=== PATIENT | female | born 1965 | race Caucasian/White ===

== ENCOUNTER 2018-10-31 15:04 | Emergency (ER) | payer SELFPAY ==
[2018-10-31] MEDS ORDERED: AMOXICILLIN TRIHYD 250 MG CAPSULE PO ONE (15:25)
[2018-10-31] MEDS ORDERED: AMOXICILLIN TR/POT CLAVULANATE 500-125 MG TAB PO ONE (15:25)
[2018-10-31] MEDS ORDERED: DIPH/PERTUSS(ACELL)/TETANUS VAC/PF 0.5 ML SYR (>=10YO) IM ONE (15:25)
--- NOTE | 2018-10-31 15:31 | ER Document Report ---
HPI - HPI Time Seen by Provider: 10/31/18 15:16 Pain Level: 5 Context: Patient is a 53-year-old female with a history of type 2 diabetes, hypertension, chronic back pain who presents to the emergency department with a chief complaint of dog bite. Patient states she was in her yard when another dog came into her yard and started a fight with her dog. Patient reports she attempted to break up the fight when the stray dog bit her left forearm, right forearm and right middle finger. Patient states she is concerned she may have a fracture to the right distal middle digit as she has bruising, swelling and inability to move at the joint distally. Patient states she is unsure of her tetanus shot is up-to-date but thinks it is greater than 5 years. Patient reports the dog did not appear ill but more aggressive towards her dog. Patient states it was not foaming at the mouth or having abnormal behavior. Patient states animal control has not been contacted. Patient reports incidence occurred around 2 PM this afternoon. - CONSTITUTIONAL Constitutional: DENIES: Fever, Chills - MUSCULOSKELETAL Musculoskeletal: REPORTS: Extremity pain Past Medical History - General Information source: Patient - Social History Smoking Status: Current Every Day Smoker Frequency of alcohol use: Rare Drug Abuse: None Lives with: Family Family History: Reviewed & Not Pertinent Patient has suicidal ideation: No Patient has homicidal ideation: No - Past Medical History Cardiac Medical History: Reports: Hx Hypertension Pulmonary Medical History: Reports: None EENT Medical History: Reports: None Neurological Medical History: Reports: None Endocrine Medical History: Reports: Hx Diabetes Mellitus Type 2 Renal/ Medical History: Reports: None. Denies: Hx Peritoneal Dialysis Malignancy Medical History: Reports: None GI Medical History: Reports: None Musculoskeletal Medical History: Reports None Skin Medical History: Reports None Psychiatric Medical History: Reports: None Traumatic Medical History: Reports: None Infectious Medical History: Reports: None Past Surgical History: Reports: Hx Hysterectomy, Hx Tonsillectomy - Immunizations Hx Diphtheria, Pertussis, Tetanus Vaccination: Yes Vertical Provider Document - CONSTITUTIONAL Agree With Documented VS: Yes Exam Limitations: No Limitations General Appearance: No Apparent Distress - INFECTION CONTROL TRAVEL OUTSIDE OF THE [place] IN LAST 30 DAYS: No - HEENT HEENT: Atraumatic, Normal ENT Exam, Normocephalic, PERRLA - NECK Neck: Normal Inspection - RESPIRATORY Respiratory: Breath Sounds Normal, No Respiratory Distress - CARDIOVASCULAR Cardiovascular: Regular Rate, Regular Rhythm - GI/ABDOMEN Gastrointestinal: Abdomen Soft, Abdomen Non-Tender - MUSCULOSKELETAL/EXTREMETIES Notes: There is 1 puncture wound noted to the left medial forearm. There is one puncture wound to the right medial forearm. There is 2 puncture wounds noted to the right middle digit on the hand. 1 of the puncture wounds is located on the ventral aspect of the right digit near the DIP joint and the other is on the dorsal side near the DIP joint. Patient has significant swelling of the PIP and DIP joint with ecchymosis. Patient has good cap refill. Slight deformity to the distal aspect of the third phalanx. - NEURO Level of Consciousness: Awake, Alert, Appropriate - DERM Integumentary: Warm, Dry Course - Re-evaluation Re-evalutation: 10/31/18 15:30 We will order an x-ray to rule out fracture dislocation of the right hand. 10/31/18 16:40 Did speak with my attending supervising physician Dr. Jaycee Flores who recommends that the patient receive rabies vaccine although the chance is low. She did state to offer the patient the rabies vaccination or to see if animal control is able to fine the animal within the next day or so. The nurse did report and pe rsonally speak with animal control. I did speak with the patient in regards to the rabies vaccine and she states that at this time she would like to wait and see if the animal control staff are able to find the dog within the next 48 hours. She states she will return if they are unable to find the dog to receive the rabies vaccination. I did inform the patient it is vital to return if they cannot find the dog has rabies can lead to . Patient verbalized understanding. I also discussed the x-ray results with Dr. Flores as the patient's finger during my physical examination had a slight deformity to the distal aspects of the third phalanx. The radiology report did not read a displacement or dislocation. Patient may have a minimally displaced fracture but is shown in some images. Will splint the middle finger and have the patient follow-up with orthopedics as she may require pinning and surgery. I did discuss this with the patient states she will call [facility] for surgery tomorrow. - Vital Signs Vital signs: Temp Pulse Resp BP Pulse Ox 99.3 F 94 18 136/79 H 95 10/31/18 15:09 10/31/18 15:09 10/31/18 15:09 10/31/18 15:09 10/31/18 15:09 - Diagnostic Test Radiology reviewed: Reports reviewed Radiology results interpreted by me: 10/31/18 16:07 Hand X-Ray 10/31/18 15:30 IMPRESSION: Oblique fracture through the distal aspect of the middle phalanx of the 3rd digit. The fracture extends through the articular surface. Discharge - Discharge Clinical Impression: Dog bite Qualifiers: Encounter type: initial encounter Qualified Code(s): W54.0XXA - Bitten by dog, initial encounter Phalanx, distal fracture of finger Qualifiers: Encounter type: initial encounter Finger: middle finger Fracture type: closed Fracture alignment: nondisplaced Laterality: right Qualified Code(s): S62.662A - Nondisplaced fracture of distal phalanx of right middle finger, initial encounter for closed fracture Condition: Stable Disposition: HOME, SELF-CARE Additional Instructions: Today you were seen in the emergency department for a dog bite. We have cleansed the wounds which do not require any repair at this time. Please keep these clean dry and monitor for signs of infection. He will be placed on Augmentin which is a member of the penicillin family this is the common antibiotic treated for dog bites. If you develop any redness, drainage or oozing from the site, fever or any signs of infection please return the emergency department immediately. Animal control has been contacted. If they are unable to find the dog within the next 48 hours you do need to return to have a rabies vaccine. This is a series of shots that we have talked about. It is imperative that if they do not find the dog they need to return for this vaccine as rabies can be deadly. It is highly unlikely that the dog has rabies but unless it is quarantine we do not know for sure. It was also noted that you have a fracture at the end of your right middle finger. We have placed you in a splint which needs to stay dry, clean and intact until you follow-up with orthopedics. It is absolutely necessary follow- up with orthopedics as you may require a pin in surgery to the finger. Please follow-up with Dr. Ponce as he is a hand specialist. Please call his office and report that you are seen in the emergency department and referred to him for follow-up. Fractured Finger There is a fracture in your finger. The bone is straight and in good posi tion to heal. The doctor has assessed the seriousness of the fracture and has explained your treatment plan. Usually the finger will be splinted until fracture healing is complete. This is usually about three or four weeks. At that time, the injured finger may be taped to the next finger to provide a moving splint for longer protection. The first few days after the injury, the finger should be kept elevated and cold (with ice packs). This decreases the swelling and pain. You should contact the doctor or return at once if pain or swelling become severe, or if the finger becomes numb. Some degree of bruising is normal with a finger fracture. Animal Bites Animal bites are often heavily contaminated with bacteria. In spite of thorough cleansing and proper treatment, these wounds frequently become infected. Bite wounds of the hands are especially prone to complications. Bites are dressed, if possible. Large wounds may require suturing after internal cleansing. Because of infection risk, some large wounds must remain unstitched. Your doctor is trained to advise you on the best treatment for your bite. Call the doctor at once if the wound becomes red, swollen, warm, increasingly painful, or if it begins to drain. Danger signs also include red streaks up the involved extremity, swollen glands in the groin or under the arm, or fever and chills. The risk of rabies from domestic animals is very low. Bats, sick animals, and wild animals may expose you to rabies. The physician, or the health department, will inform you if you will need to receive the rabies vaccine. Augmentin Augmentin is a mixture of amoxicillin and clavulanate. Amoxicillin is a member of the penicillin family. It covers the germs likely to cause ear, bronchial, and urinary infections better than plain penicillin. The addition of clavulanate allows it to cover staph infections of the skin, as well as resistant cases of ear and sinus infections. Your physician has chosen Augmentin for you because of the special nature of your situation. Augmentin is best taken with meals. Nausea after taking the medication is rare, but can occur. Diarrhea can occur, particularly in small children. Vaginal yeast infections, and oral thrush in infants are also common. Contact your physician if these problems occur. Allergy to penicillins is common. If you have had an allergic reaction to any drug of the penicillin family, you should never take any other penicillin. Notify your doctor at once if you develop hives, shortness of breath, swelling, or faintness. Prescriptions: Amox Tr/Potassium Clavulanate [Augmentin 875-125 Tablet] 1 tab PO BID 10 Days #20 tablet Forms: Return to Work, Return to School Referrals: ANTON PONCE, [ACTIVE STAFF] - Follow up as needed
--- NOTE | 2018-10-31 15:57 | RADIOLOGY REPORT (SQ) ---
EXAM DESCRIPTION: HAND RIGHT 3 VIEWS COMPLETED DATE/TIME: 10/31/2018 3:48 pm REASON FOR STUDY: right hand wounds, dog bite COMPARISON: None. EXAM PARAMETERS: NUMBER OF VIEWS: Three views. TECHNIQUE: AP, lateral and oblique radiographic images acquired of the right hand. LIMITATIONS: None. FINDINGS: MINERALIZATION: Normal. BONES: There is a fracture of the distal aspect the middle phalanx of the 3rd digit. Fracture extend s through the distal articular surface. JOINTS: No effusions. SOFT TISSUES: No soft tissue swelling. No foreign body. OTHER: No other significant finding. IMPRESSION: Oblique fracture through the distal aspect of the middle phalanx of the 3rd digit. The fracture extends through the articular surface. TECHNICAL DOCUMENTATION: JOB ID: [id number] [employer] All Rights Reserved Reading location - IP/workstation name: [email or web address]
[2018-10-31 16:52] VITALS: BP 106/72
== END 2018-10-31 16:56 | disposition home or self-care (01) ==
LOC: ER 15:04
DX: S62.662A Nondisplaced fracture of distal phalanx of right middle finger, initial encounter for closed fracture (principal); S51.852A Open bite of left forearm, initial encounter; S51.851A Open bite of right forearm, initial encounter; S61.252A Open bite of right middle finger without damage to nail, initial encounter; W54.0XXA Bitten by dog, initial encounter; F17.200 Nicotine dependence, unspecified, uncomplicated; I10 Essential (primary) hypertension; E11.9 Type 2 diabetes mellitus without complications
CPT/HCPCS: 99283; 90471; 73130; 90715; J3490

== ENCOUNTER 2018-11-06 10:43 | Emergency (ER) | payer SELFPAY ==
[2018-11-06] MEDS ORDERED: RABIES IMMUNE GLOBULIN INJ/PF 300 UNIT/2 ML SDV IM ONE (11:10)
[2018-11-06] MEDS ORDERED: RABIES VACCINE (PCEC)/PF 2.5 UNIT/1 ML KIT IM ONE (11:13)
[2018-11-06] MEDS ORDERED: NORMAL SALINE 1000 ML 1,000 ML IV ONE (11:14)
[2018-11-06] MEDS ORDERED: ONDANSETRON HCL INJ/PF 4 MG/2 ML SDV IV ONE (11:14)
--- NOTE | 2018-11-06 11:17 | ER Document Report ---
ED Medical Screen (RME) - General Chief Complaint: Dog Bite Stated Complaint: DOG BITE Time Seen by Provider: 11/06/18 11:08 Primary Care Provider: LEANN CANSECO MD [Primary Care Provider] - Follow up as needed Mode of Arrival: Ambulatory Information source: Patient Notes: 53-year-old female presented to ED for complaint of animal bite last week. She states she came into the emergency room right away when she was bit they told her to go home started on her Augmentin and try to get in touch with animal control. She states that she was in her yard with her dogs when a stray dog came in and bit her dog and herself. She did get tetanus shot and was started on Augmentin. She states she has had nausea vomiting diarrhea chills and her sugars have not been as well kept as they had been. She is alert oriented respirations regular and unlabored speaking in full sentences walking with a even steady gait. I have greeted and performed a rapid initial assessment of this patient. A comprehensive ED assessment and evaluation of the patient, analysis of test results and completion of medical decision making process will be conducted by an additional ED providers. TRAVEL OUTSIDE OF THE [place] IN LAST 30 DAYS: No - Related Data Allergies/Adverse Reactions: No Known Allergies Allergy (Verified 11/06/18 10:45) Past Medical History - Past Medical History Cardiac Medical History: Reports: Hx Hypertension Endocrine Medical History: Reports: Hx Diabetes Mellitus Type 2 Renal/ Medical History: Denies: Hx Peritoneal Dialysis Past Surgical History: Reports: Hx Hysterectomy, Hx Tonsillectomy - Immunizations Hx Diphtheria, Pertussis, Tetanus Vaccination: Yes Physical Exam - Vital signs Vitals: Temp Pulse Resp BP Pulse Ox 98.7 F 94 16 133/70 H 94 11/06/18 10:48 11/06/18 10:48 11/06/18 10:48 11/06/18 10:48 11/06/18 10:48 Course - Vital Signs Vital signs: Temp Pulse Resp BP Pulse Ox 98.7 F 94 16 133/70 H 94 11/06/18 10:48 11/06/18 10:48 11/06/18 10:48 11/06/18 10:48 11/06/18 10:48 Doctor's Discharge - Discharge Referrals: LEANN CANSECO MD [Primary Care Provider] - Follow up as needed
--- NOTE | 2018-11-06 11:50 | ER Document Report ---
Entered by MELLY LAM SCRIBE 11/06/18 1113 Acting as scribe for:RAMIRO BETH MD ED Animal Bite - General Chief Complaint: Dog Bite Stated Complaint: DOG BITE Time Seen by Provider: 11/06/18 11:08 Primary Care Provider: LEANN CANSECO MD [ACTIVE STAFF] - Follow up as needed Notes: 53-year-old female that presents to the emergency department today with complaints of fevers, chills, and sweats. Patient was seen here approximately a week ago for a dog bite to her left arm and right 3rd finger which occurred when trying to break up a dog fight. Patient states that she was in the backyard playing with her dog when a stray dog not known to her "jumped the fence and started attacking my dog". Patient states she was put on antibiotics and given a tetanus shot when she was seen here last week. Patient states she has still not heard back from animal control regarding health status of the dog she was bitten by, stating that they "couldn't find the dog". Patient reports her left arm "vicente and throbs". Patient was started on Augmentin 875 BID on 10/31. TRAVEL OUTSIDE OF THE [place] IN LAST 30 DAYS: No - Related Data Allergies/Adverse Reactions: tuberculin,PPD,multi-puncture Allergy (Verified 11/06/18 12:14) Past Medical History - General Information source: Patient, [facility] Records - Social History Smoking Status: Current Every Day Smoker Cigarette use (# per day): Yes - 1 ppd Chew tobacco use (# tins/day): No Smoking Education Provided: No Frequency of alcohol use: Rare Drug Abuse: None Family History: Reviewed & Not Pertinent - Past Medical History Cardiac Medical History: Reports: Hx Hypertension Endocrine Medical History: Reports: Hx Diabetes Mellitus Type 2 Past Surgical History: Reports: Hx Hysterectomy, Hx Tonsillectomy - Immunizations Hx Diphtheria, Pertussis, Tetanus Vaccination: Yes Review of Systems - Review of Systems Constitutional: See HPI, Chills, Diaphoresis, Fever, Malaise EENT: No symptoms reported Cardiovascular: No symptoms reported Respiratory: No symptoms reported Gastrointestinal: No symptoms reported Genitourinary: No symptoms reported Female Genitourinary: No symptoms reported Musculoskeletal: No symptoms reported Skin: See HPI, Other - dog bite to left arm, right hand Hematologic/Lymphatic: No symptoms reported Neurological/Psychological: No symptoms reported -: Yes All other systems reviewed and negative Physical Exam - Vital signs Vitals: Temp Pulse Resp BP Pulse Ox 98.7 F 94 16 133/70 H 94 11/06/18 10:48 11/06/18 10:48 11/06/18 10:48 11/06/18 10:48 11/06/18 10:48 - Notes Notes: Physical Exam: General: Alert, appears well. HEENT: Normocephalic. Atraumatic. PERRL. Extraocular movements intact. Oropharynx clear. Neck: Supple. Non-tender. Respiratory: No respiratory distress. Clear and equal breath sounds bilaterally. Cardiovascular: Regular rate and rhythm. Abdominal: Normal Inspection. Non-tender. No distension. Normal Bowel Sounds. Back: No gross abnormalities. Extremities: Moves all four extremities. Upper extremities: see skin exam Lower extremities: Normal inspection. No edema. Normal ROM. Neurological: Normal cognition. AAOx4. Normal speech. Psychological: Normal affect. Normal Mood. Skin: Very superficial scratches to left volar forearm with surrounding ecchymosis, no puncture wounds. Right third middle phalanx is grossly swollen and ecchymotic with a puncture wound to the radial side of the DIP. Course - Re-evaluation Re-evalutation: 11/06/18 14:08 I did discuss this case with Officer Carlos from [employer]. He states that he has been patrolling the neighborhood and unable to find the dog. He further states that the day after the dog bite, a neighbor called [employer] and reported that it was a neighborhood dog. The neighbor and the patient know whose dog it was, but the patient and surrounding neighbors did not want to report the sewing machine attachment tester of the dog out of fear of retaliation. 11/06/18 14:20 I spoke with the patient, after discussing the case with [employer]. She states that she does not know who the sewing machine attachment tester of the dog is. She states she has never seen it in her neighborhood before. She is agreeable to me contacting [employer] and giving them her cell phone number so that she can discuss this with the office her carlos and see if they can determine if it is all right to contact the neighbor who called to report that it was a neighborhood dog. I asked her to speak with Officejohn Gonzalez, and her neighbor, to determine if she really does need the rabies series of injections. Her exam today does not show a reason to change antibiotics, or to change her treatment approach, other than perhaps drink more fluids and take some Imodium for her diarrhea which is most likely being caused by the Augmentin. - Vital Signs Vital signs: Temp Pulse Resp BP Pulse Ox 98.7 F 94 16 133/70 H 94 11/06/18 10:48 11/06/18 10:48 11/06/18 10:48 11/06/18 10:48 11/06/18 10:48 - Laboratory Result Diagrams: 11/06/18 11:40 11/06/18 11:40 Laboratory results interpreted by me: 11/06/18 11/06/18 11:40 11:40 MCH 26.6 L RDW 15.4 H BUN 25 H Glucose 133 H - Diagnostic Test Radiology reviewed: Image reviewed - X-ray that was done on 10/31/2018, shows a slightly displaced fracture through the distal third middle phalanx which involves the joint surface. Discharge - Discharge Clinical Impression: Dog bite of finger Qualifiers: Encounter type: subsequent encounter Qualified Code(s): S61.259D - Open bite of unspecified finger without damage to nail, subsequent encounter Fracture of middle phalanx of middle finger Qualifiers: Encounter type: subsequent encounter Fracture type: open Fracture alignment: displaced Laterality: right Fracture healing: with routine healing Qualified Code(s): S62.622D - Displaced fracture of middle phalanx of right middle finger, subsequent encounter for fracture with routine healing Diarrhea Qualifiers: Diarrhea type: unspecified type Qualified Code(s): R19.7 - Diarrhea, unspecified Condition: Stable Disposition: HOME, SELF-CARE Additional Instructions: The diarrhea you are having is most likely due to the clavulanic acid that is part of the Augmentin tablet. You should try taking something like Imodium-AD to help reduce your diarrhea frequency. You should increase your fluid intake to prevent becoming dehydrated. [employer] Machine Operator Carlos at [phone] to discuss this case to determine if you will need the rabies immunoglobulin and vaccine series. If you decide that animal control cannot determine the sewing machine attachment tester of the animal, and cannot confirm it is a neighborhood dog, then you should return for the rabies vaccination series. Be sure to follow-up with the orthopedic group that you have established with to manage your fractured finger. RETURN TO THE EMERGENCY ROOM IF ANY NEW OR WORSENING SYMPTOMS. Forms: Return to Work Referrals: LEANN CANSECO MD [ACTIVE STAFF] - Follow up as needed Scribe Attestation: 11/06/18 12:38 I personally performed the services described in the documentation, reviewed and edited the documentation which was dictated to the scribe in my presence, and it accurately records my words and actions. I personally performed the services described in the documentation, reviewed and edited the documentation which was dictated to the scribe in my presence, and it accurately records my words and actions.
[2018-11-06 11:59] LABS: APPEARANCE,URINE CLEAR; BILIRUBIN,URINE NEGATIVE (NEGATIVE); COLOR,URINE YELLOW; GLUCOSE, URINE NEGATIVE (NEGATIVE); KETONES,URINE NEGATIVE (NEGATIVE); LEUKOCYTE ESTERASE,URINE NEGATIVE (NEGATIVE); NITRITE,URINE NEGATIVE (NEGATIVE); PROTEIN,URINE NEGATIVE (NEGATIVE); URINE SPECIFIC GRAVITY 1.023; UROBILINOGEN,URINE NEGATIVE mg/dL (<2.0)
[2018-11-06 12:09] LABS: ABSOLUTE EOSINOPHILS # (AUTO) 0.5 10^3/uL (0.0-0.6); ABSOLUTE LYMPHOCYTES (AUTO) 2.4 10^3/uL (0.5-4.7); ABSOLUTE MONOCYTES (AUTO) 0.6 10^3/uL (0.1-1.4); ABSOLUTE NEUT (AUTO) 5.8 10^3/uL (1.7-8.2); BASOPHILS % (AUTO) 0.5 % (0-2); EOSINOPHILS % (AUTO) 5.6 % (0-6); HEMATOCRIT 37.8 % (36.0-47.0); HEMOGLOBIN 12.5 g/dL (12.0-15.5); LYMPHOCYTES % (AUTO) 25.5 % (13-45); MEAN CORPUSCULAR HEMOGLOBIN 26.6 pg (27.0-33.4); MEAN CORPUSCULAR HGB CONC 33.1 g/dL (32.0-36.0); MEAN CORPUSCULAR VOLUME 80 fl (80-97); MONOCYTES % (AUTO) 6.1 % (3-13); PLATELET COUNT 223 10^3/uL (150-450); RED BLOOD COUNT 4.72 10^6/uL (3.72-5.28); RED CELL DISTRIBUTION WIDTH 15.4 % (11.5-14.0); SEGMENTED NEUTROPHILS % (AUTO) 62.3 % (42-78); TOTAL CELLS COUNTED % (AUTO) 100 %; WHITE BLOOD COUNT 9.4 10^3/uL (4.0-10.5)
[2018-11-06 12:41] LABS: ALBUMIN 3.9 g/dL (3.5-5.0); ALKALINE PHOSPHATASE 53 U/L (38-126); ANION GAP 8 (5-19); ASPARTATE AMINO TRANSFERASE 24 U/L (14-36); BILIRUBIN,DIRECT 0.4 mg/dL (0.0-0.4); BILIRUBIN,TOTAL 0.4 mg/dL (0.2-1.3); BLOOD UREA NITROGEN 25 mg/dL (7-20); CALCIUM 9.8 mg/dL (8.4-10.2); CARBON DIOXIDE 26 mmol/L (22-30); CHLORIDE 106 mmol/L (98-107); CREATINE KINASE 120 U/L (30-135); GLUCOSE 133 mg/dL (75-110); POTASSIUM 4.6 mmol/L (3.6-5.0); TOTAL PROTEIN 7.3 g/dL (6.3-8.2)
[2018-11-06 14:44] VITALS: BP 104/67
== END 2018-11-06 14:48 | disposition home or self-care (01) ==
LOC: ER 10:43
DX: S62.622D Displaced fracture of middle phalanx of right middle finger, subsequent encounter for fracture with routine healing (principal); S61.252D Open bite of right middle finger without damage to nail, subsequent encounter; R19.7 Diarrhea, unspecified; W54.0XXD Bitten by dog, subsequent encounter; F17.210 Nicotine dependence, cigarettes, uncomplicated; E11.9 Type 2 diabetes mellitus without complications; I10 Essential (primary) hypertension; Z90.710 Acquired absence of both cervix and uterus
CPT/HCPCS: 99283; 96361; 96374; 36415; 87040; 82550; 85025; 80053; 81001; 83605; J2405; J7030

== ENCOUNTER 2018-11-12 12:11 | Emergency (ER) | payer SELFPAY ==
--- NOTE | 2018-11-12 13:58 | ER Document Report ---
ED Medical Screen (RME) - General Chief Complaint: Other Stated Complaint: DOCTOR NOTE Time Seen by Provider: 11/12/18 13:55 Mode of Arrival: Ambulatory Information source: Patient Notes: 53-year-old female presents to ED for continued nausea vomiting and diarrhea since last week when she was put on Augmentin for dog bite. She states she is having stools or vomiting every time she eats. She states she has very poor intake because of the nausea vomiting and diarrhea. She states she took her last Augmentin on Monday and continued to have nausea vomiting and diarrhea. Patient is alert oriented respirations regular and unlabored speaking in full sentences. I have greeted and performed a rapid initial assessment of this patient. A comprehensive ED assessment and evaluation of the patient, analysis of test results and completion of medical decision making process will be conducted by an additional ED providers. TRAVEL OUTSIDE OF THE [place] IN LAST 30 DAYS: No - Related Data Allergies/Adverse Reactions: tuberculin,PPD,multi-puncture Allergy (Verified 11/12/18 12:12) Past Medical History - Past Medical History Cardiac Medical History: Reports: Hx Hypercholesterolemia, Hx Hypertension Endocrine Medical History: Reports: Hx Diabetes Mellitus Type 2 Renal/ Medical History: Denies: Hx Peritoneal Dialysis Past Surgical History: Reports: Hx Hysterectomy, Hx Tonsillectomy - Immunizations Hx Diphtheria, Pertussis, Tetanus Vaccination: Yes Physical Exam - Vital signs Vitals: Temp Pulse Resp BP Pulse Ox 98.8 F 90 20 128/76 H 95 11/12/18 12:20 11/12/18 12:20 11/12/18 12:20 11/12/18 12:20 11/12/18 12:20 Course - Vital Signs Vital signs: Temp Pulse Resp BP Pulse Ox 98.8 F 90 20 128/76 H 95 11/12/18 12:20 11/12/18 12:20 11/12/18 12:20 11/12/18 12:20 11/12/18 12:20
[2018-11-12] MEDS ORDERED: ONDANSETRON 4 MG TAB.RAPDIS PO ONE (13:59)
[2018-11-12] MEDS ORDERED: NORMAL SALINE 1000 ML 1,000 ML IV ONE (13:59)
[2018-11-12 14:41] LABS: ABSOLUTE BASOPHILS # (AUTO) 0.1 10^3/uL (0.0-0.2); ABSOLUTE EOSINOPHILS # (AUTO) 0.3 10^3/uL (0.0-0.6); ABSOLUTE LYMPHOCYTES (AUTO) 2.5 10^3/uL (0.5-4.7); ABSOLUTE MONOCYTES (AUTO) 0.6 10^3/uL (0.1-1.4); ABSOLUTE NEUT (AUTO) 7.4 10^3/uL (1.7-8.2); BASOPHILS % (AUTO) 0.5 % (0-2); EOSINOPHILS % (AUTO) 3.1 % (0-6); HEMATOCRIT 38.7 % (36.0-47.0); HEMOGLOBIN 12.8 g/dL (12.0-15.5); LYMPHOCYTES % (AUTO) 22.7 % (13-45); MEAN CORPUSCULAR HEMOGLOBIN 26.5 pg (27.0-33.4); MEAN CORPUSCULAR HGB CONC 33.1 g/dL (32.0-36.0); MEAN CORPUSCULAR VOLUME 80 fl (80-97); MONOCYTES % (AUTO) 5.6 % (3-13); PLATELET COUNT 197 10^3/uL (150-450); RED BLOOD COUNT 4.83 10^6/uL (3.72-5.28); RED CELL DISTRIBUTION WIDTH 15.3 % (11.5-14.0); SEGMENTED NEUTROPHILS % (AUTO) 68.1 % (42-78); TOTAL CELLS COUNTED % (AUTO) 100 %; WHITE BLOOD COUNT 10.9 10^3/uL (4.0-10.5)
[2018-11-12 15:06] LABS: ALBUMIN 3.9 g/dL (3.5-5.0); ALKALINE PHOSPHATASE 53 U/L (38-126); ANION GAP 8 (5-19); ASPARTATE AMINO TRANSFERASE 20 U/L (14-36); BILIRUBIN,TOTAL 0.3 mg/dL (0.2-1.3); BLOOD UREA NITROGEN 25 mg/dL (7-20); CALCIUM 9.9 mg/dL (8.4-10.2); CARBON DIOXIDE 27 mmol/L (22-30); CHLORIDE 107 mmol/L (98-107); GLUCOSE 103 mg/dL (75-110); POTASSIUM 4.5 mmol/L (3.6-5.0); TOTAL PROTEIN 7.3 g/dL (6.3-8.2)
[2018-11-12] MEDS ORDERED: ACETAMINOPHEN 325 MG TABLET PO ONE (16:35)
[2018-11-12 17:00] VITALS: BP 99/69
[2018-11-12 17:10] LABS: APPEARANCE,URINE CLEAR; BILIRUBIN,URINE NEGATIVE (NEGATIVE); COLOR,URINE YELLOW; GLUCOSE, URINE NEGATIVE (NEGATIVE); KETONES,URINE NEGATIVE (NEGATIVE); LEUKOCYTE ESTERASE,URINE NEGATIVE (NEGATIVE); NITRITE,URINE NEGATIVE (NEGATIVE); PROTEIN,URINE NEGATIVE (NEGATIVE); UROBILINOGEN,URINE NEGATIVE mg/dL (<2.0)
--- NOTE | 2018-11-12 17:55 | ER Document Report ---
HPI - HPI Time Seen by Provider: 11/12/18 13:55 Pain Level: 2 Context: Patient is a 53-year-old female who presents to the emergency department with a chief complaint of diarrhea. Patient states she finished her course of Augmentin on Monday, 2 days ago. Patient states that she has been attempting to do the brat diet with minimal relief. Patient reports daily she has about 3- 4 episodes of diarrhea. Patient reports that this appears to be a pured spinach consistency with no blood. Patient states she is attempted Imodium and Pepto-Bismol with minimal relief. Patient was on Augmentin due to a dog bite. Patient reports the dog bite has been healing appropriately and has not been draining. Patient denies fever. Patient denies abdominal pain. Patient r eports she has had a few episodes of nausea and occasional vomiting over the past week. Patient reports she does smoke 1 pack/day. Patient does have follow-up with orthopedics on Monday at [facility] in [place] due to her fracture in her finger from the dog bite. Past Medical History - General Information source: Patient - Social History Smoking Status: Unknown if Ever Smoked Frequency of alcohol use: None Drug Abuse: None Lives with: Family Family History: Reviewed & Not Pertinent Patient has suicidal ideation: No Patient has homicidal ideation: No - Past Medical History Cardiac Medical History: Reports: Hx Hypercholesterolemia, Hx Hypertension Pulmonary Medical History: Reports: None EENT Medical History: Reports: None Neurological Medical History: Reports: None Endocrine Medical History: Reports: Hx Diabetes Mellitus Type 2 Renal/ Medical History: Reports: None. Denies: Hx Peritoneal Dialysis Malignancy Medical History: Reports: None GI Medical History: Reports: None Musculoskeletal Medical History: Reports None Skin Medical History: Reports None Psychiatric Medical History: Reports: None Traumatic Medical History: Reports: None Infectious Medical History: Reports: None Past Surgical History: Reports: Hx Hysterectomy, Hx Tonsillectomy - Immunizations Hx Diphtheria, Pertussis, Tetanus Vaccination: Yes Vertical Provider Document - CONSTITUTIONAL Agree With Documented VS: Yes Exam Limitations: No Limitations General Appearance: No Apparent Distress Notes: GENERAL: Well-appearing, well-nourished and in no acute distress. HEAD: Atraumatic, normocephalic. EYES: Pupils equal round and reactive to light, extraocular movements intact, sclera anicteric, conjunctiva are normal. ENT: TMs normal, nares patent, oropharynx clear without exudates. Moist mucous membranes. NECK: Normal range of motion, supple without lymphadenopathy or JVD. LUNGS: Breath sounds clear to auscultation bilaterally and equal. No wheezes rales or rhonchi. HEART: Regular rate and rhythm without murmurs, rubs or gallops. ABDOMEN: Soft, nontender, normoactive bowel sounds. No guarding, no rebound. No masses appreciated. BACK: No cervical, thoracic, lumbar midline tenderness. No saddle anesthesia, normal distal neurovascular exam. GENITOURINARY: Deferred. EXTREMITIES: Normal range of motion, no pitting or edema. No clubbing or cyanosis. Healing scar to left mid-forearm, no drainage, erythema, or edema. Right middle finger in dressing and finger splint. Dry and intact. NEUROLOGICAL: Cranial nerves II through XII grossly intact. Normal speech, normal gait. PSYCH: Normal mood, normal affect. SKIN: Warm, Dry, normal turgor, no rashes or lesions noted. - INFECTION CONTROL TRAVEL OUTSIDE OF THE [place] IN LAST 30 DAYS: No Course - Re-evaluation Re-evalutation: 11/12/18 17:52 Patient's labs are unremarkable. Patient is tolerating sips of seirra mist. Patient reports the Zofran did help with her nausea. Patient reports she has had 2 small liquid bowel movements while here in the emergency department. Will order appropriate testing. Patient did receive a liter of fluid via her IV. 11/12/18 18:27 Patient resting comfortably in chair. I will give the patient a work note, school note and Zofran to go home with. Patient has had 2 episodes of liquid bowel movement while here in the emergency department. Patient states she has been tolerating liquids. Patient no acute distress and nontoxic-appearing patient will be discharged with strict return precautions. 11/12/18 20:31 Patient stool was negative for C. difficile and white blood cells. Stool culture has been sent. - Vital Signs Vital signs: Temp Pulse Resp BP Pulse Ox 98.8 F 77 20 99/69 L 97 11/12/18 12:20 11/12/18 16:52 11/12/18 12:20 11/12/18 16:52 11/12/18 16:52 - Laboratory Result Diagrams: 11/12/18 14:21 11/12/18 14:21 Laboratory results interpreted by me: 11/12/18 11/12/18 14:21 14:21 WBC 10.9 H MCH 26.5 L RDW 15.3 H BUN 25 H 11/12/18 17:53 Laboratory 11/12/18 11/12/18 11/12/18 14:21 14:21 16:42 WBC 10.9 H RBC 4.83 Hgb 12.8 Hct 38.7 MCV 80 MCH 26.5 L MCHC 33.1 RDW 15.3 H Plt Count 197 Lymph % (Auto) 22.7 Dane % (Auto) 5.6 Eos % (Auto) 3.1 Baso % (Auto) 0.5 Absolute Neuts (auto) 7.4 Absolute Lymphs (auto) 2.5 Absolute Monos (auto) 0.6 Absolute Eos (auto) 0.3 Absolute Basos (auto) 0.1 Seg Neutrophils % 68.1 Sodium 142.0 Potassium 4.5 Chloride 107 Carbon Dioxide 27 Anion Gap 8 BUN 25 H Creatinine 0.94 Est GFR ( Amer) > 60 Est GFR (MDRD) Non-Af > 60 Glucose 103 Calcium 9.9 Total Bilirubin 0.3 Direct Bilirubin 0.0 Neonat Total Bilirubin Not Reportable Neonat Direct Bilirubin Not Reportable Neonat Indirect Bili Not Reportable AST 20 ALT 22 Alkaline Phosphatase 53 Total Protein 7.3 Albumin 3.9 Lipase 204.4 Urine Color YELLOW Urine Appearance CLEAR Urine pH 5.0 Ur Specific [place] 1.020 Urine Protein NEGATIVE Urine Glucose (UA) NEGATIVE Urine Ketones NEGATIVE Urine Blood NEGATIVE Urine Nitrite NEGATIVE Urine Bilirubin NEGATIVE Urine Urobilinogen NEGATIVE Ur Leukocyte Esterase NEGATIVE Urine WBC (Auto) 1 Urine RBC (Auto) 1 U Hyaline Cast (Auto) 1 Squamous Epi Cells Auto 1 Urine Mucus (Auto) RARE Urine Ascorbic Acid NEGATIVE Discharge - Discharge Clinical Impression: Nausea Diarrhea Qualifiers: Diarrhea type: unspecified type Qualified Code(s): R19.7 - Diarrhea, unspecified Condition: Stable Disposition: HOME, SELF-CARE Additional Instructions: Today you were seen in the emergency department for diarrhea. We have obtained a stool culture as well as a C diff test and cultures, if these come back positive you will be contacted so he can be placed on oral antibiotics. You can include yogurt and other probiotics in your diet, this can help develop normal spike in your gut and bowel. Please return to the emergency department if you develop blood in the stool or vomit, abdominal pain, abdominal swelling or pain that is localized to one area, high fever or any other concerning signs or symptoms. Continue Imodium. Please advance her diet as tolerated and continue the brat diet and focus on liquids to stay hydrated. When you start to feel better incorporate a normal diet. Augmentin Augmentin is a mixture of amoxicillin and clavulanate. Amoxicillin is a member of the penicillin family. It covers the germs likely to cause ear, bronchial, and urinary infections better than plain penicillin. The addition of clavulanate allows it to cover staph infections of the skin, as well as resistant cases of ear and sinus infections. Your physician has chosen Augmentin for you because of the special nature of your situation. Augmentin is best taken with meals. Nausea after taking the medication is rare, but can occur. Diarrhea can occur, particularly in small children. Vaginal yeast infections, and oral thrush in infants are also common. Contact your physician if these problems occur. Allergy to penicillins is common. If you have had an allergic reaction to any drug of the penicillin family, you should never take any other penicillin. Notify your doctor at once if you develop hives, shortness of breath, swelling, or faintness. Diarrhea Diarrhea means frequent, watery stools. There are many causes. Any problem that keeps the intestinal tract from absorbing water from the stool can lead to diarrhea. A sudden new diarrhea problem is usually caused by a virus, food sensitivity, toxic bacteria, or drugs. In this case, we expect the problem to go away soon. Testing is done only if you seem seriously ill from the diarrhea. If you have chronic diarrhea, or diarrhea that keeps coming back, we need to find out why. Chronic diarrhea can be due to inflammation of the bowels such as Crohn's disease or ulcerative colitis, food sensitivity such as intolerance to lactose or wheat protein, irritable bowel syndrome, and other problems. If your diarrhea is a significant problem but it's not clear why you have it, we'll refer you to a specialist for further testing. During an episode of diarrhea, drink small amounts (two to six ounces) of clear liquids (soft drinks, sport drinks, herb teas, broth, etc). Take fluids frequently to prevent dehydration. It's usually not a problem to take mild anti- diarrhea medication such as Kaopectate or Pepto-Bismol. As the diarrhea eases, advance to small amounts of bland food (mashed potato, toast) for 24 hours. Call the physician if blood appears in your vomit or stool, if vomiting lasts longer than 24 hours, if the abdominal pain worsens or becomes localized to one area, if you develop high fever, or if you become lightheaded and weak. Forms: Smoking Cessation Education, Return to School, Return to Work Referrals: [facility] [Provider Group] - Follow up as needed [facility] [Provider Group] - Follow up as needed
[2018-11-12] MEDS ORDERED: ONDANSETRON ODT 4 MG TAB (6 TAB/ER DISP) PO PRN (18:16)
[2018-11-12 20:05] LABS: C DIFFICILE GDH NEGATIVE (NEGATIVE)
== END 2018-11-12 18:45 | disposition home or self-care (01) ==
LOC: ER 12:11
DX: R19.7 Diarrhea, unspecified (principal); E78.00 Pure hypercholesterolemia, unspecified; I10 Essential (primary) hypertension; E11.9 Type 2 diabetes mellitus without complications; F17.210 Nicotine dependence, cigarettes, uncomplicated
CPT/HCPCS: 36415; 87045; 89055; 87205; 83690; 85025; 80053; 81001; 87324; 87449; S0119; J7030; 96360; 99284